=== PATIENT | female | born 1995 | race Hispanic/Latino ===

== ENCOUNTER 2019-07-06 17:12 | Emergency (ER) | payer OTHER ==
--- OUTSIDE RECORDS SUMMARY | 2019-07-06 17:16 | XMS REPORT ---
:1995 Author Organization [facility] Address [address] [place] [address] Dr. [place] [address] [place] [address] Care Team Providers Name Role Phone Unavailable Unavailable Unavailable Problems This patient has no known problems. Allergies, Adverse Reactions, Alerts This patient has no known allergies or adverse reactions. Medications This patient has no known medications.
--- OUTSIDE RECORDS SUMMARY | 2019-07-06 17:16 | XMS REPORT ---
:1993 Author Organization eClinicalWorks Care Team Providers Name Role Phone Live, Na Provider Role Unavailable Allergies No Known Allergies Problems Problem Type Condition Code Onset Dates Condition Status Problem Sleep disturbance G47.9 Active Problem Acanthosis nigricans L83 Active Problem Body mass index (BMI) of 40.0-44.9 Z68.41 Active in adult Problem Renal artery stenosis in 1 of 2 I70.1 Active vessels Problem Gastroesophageal reflux disease, K21.9 Active esophagitis presence not specified Problem Renal artery stenosis I70.1 Active Problem GERD without esophagitis K21.9 Active Problem Acquired hypothyroidism E03.9 Active Problem Other secondary hypertension I15.8 Active Problem Seasonal allergies J30.2 Active Medications No Known Medications Results No Known Results Summary Purpose eClinicalWorks Submission
--- OUTSIDE RECORDS SUMMARY | 2019-07-06 17:16 | XMS REPORT ---
:1993 Author Organization eClinicalWorks Care Team Providers Name Role Phone Live, Na Provider Role Unavailable Allergies, Adverse Reactions, Alerts Substance Reaction Event Type N.K.D.A. Info Not Available Non Drug Allergy Problems Problem Type Condition Code Onset Dates Condition Status Problem Body mass index (BMI) of 40.0-44.9 Z68.41 Active in adult Problem Acquired hypothyroidism E03.9 Active Problem Acanthosis nigricans L83 Active Problem Renal artery stenosis I70.1 Active Assessment Elevated alkaline phosphatase level R74.8 Active Problem Renal artery stenosis in 1 of 2 I70.1 Active vessels Assessment Body mass index (BMI) of 40.0-44.9 Z68.41 Active in adult Problem Pelvic pain R10.2 Active Problem Seasonal allergies J30.2 Active Problem GERD without esophagitis K21.9 Active Problem Gastroesophageal reflux disease, K21.9 Active esophagitis presence not specified Problem Other secondary hypertension I15.8 Active Assessment Hoarseness or changing voice R49.9 Active Assessment Oral contraception initial Z30.011 Active prescription Assessment Seasonal allergies J30.2 Active Assessment Gastroesophageal reflux disease, K21.9 Active esophagitis presence not specified Assessment Acquired hypothyroidism E03.9 Active Assessment Other secondary hypertension I15.8 Active Assessment Hair loss L65.9 Active Assessment Renal artery stenosis in 1 of 2 I70.1 Active vessels Problem Sleep disturbance G47.9 Active Medications Medication Code Code Instructions Start End Status Dosage System Date Date Chlorthalidone ND 22646472404 25 MG Orally Aug 05, Active 1 tablet Once a day 2017 in the morning with food Protonix ND 17417802498 40 MG Orally April 28, Active 1 tablet Once a day 2017 Taytulla ND 46116158818 1-20 MG-MCG(24) Oct 05, Active 1 capsule Orally Once a 2018 day Fluticasone ND 15641612483 50 MCG/ACT Active 1 spray in Propionate Nasally Once a each day nostril Levothyroxine ND 90166955264 75 MCG Orally Active 1 tablet Sodium Once a day on an empty stomach in the morning Results No Known Results Summary Purpose eClinicalWorks Submission
--- OUTSIDE RECORDS SUMMARY | 2019-07-06 17:16 | XMS REPORT ---
:1993 Author Organization eClinicalWorks Care Team Providers Name Role Phone Live, Na Provider Role Unavailable Allergies, Adverse Reactions, Alerts Substance Reaction Event Type N.K.D.A. Info Not Available Non Drug Allergy Problems Problem Type Condition Code Onset Dates Condition Status Problem Seasonal allergies J30.2 Active Problem Gastroesophageal reflux disease, K21.9 Active esophagitis presence not specified Problem Other secondary hypertension I15.8 Active Problem Hypokalemia E87.6 Active Assessment Hypokalemia E87.6 Active Problem Pelvic pain R10.2 Active Assessment Muscle cramps R25.2 Active Assessment Alkaline phosphatase elevation R74.8 Active Problem Hair loss L65.9 Active Problem Renal artery stenosis I70.1 Active Problem Renal artery stenosis in 1 of 2 I70.1 Active vessels Problem Irregular menses N92.6 Active Problem Well woman exam with routine Z01.419 Active gynecological exam Assessment Renal artery stenosis in 1 of 2 I70.1 Active vessels Assessment Pelvic pain R10.2 Active Assessment Other secondary hypertension I15.8 Active Assessment Acquired hypothyroidism E03.9 Active Problem Body mass index (BMI) of 40.0-44.9 Z68.41 Active in adult Problem Acanthosis nigricans L83 Active Problem Acquired hypothyroidism E03.9 Active Assessment Hair loss L65.9 Active Problem Sleep disturbance G47.9 Active Problem GERD without esophagitis K21.9 Active Medications Medication Code Code Instructions Start End Status Dosage System Date Date [facility] 56422844307 1-20 MG-MCG() Oct 05, Active 1 capsule Orally Once a 2018 day Levothyroxine ND 13618236177 75 MCG Orally Active 1 tablet Sodium Once a day on an empty stomach in the morning Pantoprazole ND 77040062930 20 MG Orally Active 1 tablet Sodium Once a day Fluticasone [facility] 84566038698 50 MCG/ACT Active 1 spray Propionate Nasally Once a in each day nostril Chlorthalidone [facility] 90601776897 25 MG Orally Active 1 tablet Once a day in the morning with food Protonix [facility] 98722532729 40 MG Orally April 28, Active 1 tablet Once a day 2017 Omeprazole [facility] [address]-11 40 MG Orally Active 1 capsule twice a day Results Name Result Date Reference Range Unit Abnormality Flag COMPREHENSIVE METABOLIC PANEL(CMP) ----ALBUMIN/GLOBULI 1.4 20190225 1.0-2.5 (calc) N N RATIO ----GLOBULIN 3.2 [id number] 1.9-3.7 g/dL N (calc) ----ALKALINE 112 [id number] 33-115 U/L N PHOSPHATASE ----BILIRUBIN, 0.5 [id number] 0.2-1.2 mg/dL N TOTAL ----CHLORIDE 99 [id number] 98-110 mmol/L N ----ALT 27 [id number] 6-29 U/L N ----POTASSIUM 3.6 [id number] 3.5-5.3 mmol/L N ----AST 24 [id number] 10-30 U/L N ----SODIUM 141 [id number] 135-146 mmol/L N ----BUN/CREATININE NOT APPLICABLE [id number] 6-22 (calc) RATIO ----eGFR 121 [id number] > OR=60 mL/min/1.[address] ----CALCIUM 10.2 [id number] 8.6-10.2 mg/dL N ----CARBON DIOXIDE 29 [id number] 20-32 mmol/L N ----ALBUMIN 4.6 [id number] 3.6-5.1 g/dL N ----PROTEIN, TOTAL 7.8 [id number] 6.1-8.1 g/dL N ----GLUCOSE 83 [id number] 65-99 mg/dL N ----UREA NITROGEN 11 [id number] 7-25 mg/dL N (BUN) ----CREATININE 0.79 [id number] 0.50-1.10 mg/dL N ----eGFR NON-AFR. 104 [id number] > OR=60 mL/min/1.[address] Summary Purpose eClinicalWorks Submission
--- OUTSIDE RECORDS SUMMARY | 2019-07-06 17:16 | XMS REPORT ---
:1993 Author Organization eClinicalWorks Care Team Providers Name Role Phone Calos, Sandrita Provider Role Unavailable Allergies, Adverse Reactions, Alerts Substance Reaction Event Type N.K.D.A. Info Not Available Non Drug Allergy Problems Problem Type Condition Code Onset Dates Condition Status Assessment Cold intolerance R68.89 Active Assessment Varicose veins of bilateral lower I83.893 Active extremities with other complications Problem Other secondary hypertension I15.8 Active Assessment Low vitamin D level R79.89 Active Problem Gastroesophageal reflux disease, K21.9 Active esophagitis presence not specified Assessment Other secondary hypertension I15.8 Active Problem Renal artery stenosis in 1 of 2 I70.1 Active vessels Problem Well woman exam with routine Z01.419 Active gynecological exam Problem Renal artery stenosis I70.1 Active Problem Varicose veins of bilateral lower I83.893 Active extremities with other complications Problem Lesion of skin of foot L98.9 Active Assessment Lesion of skin of foot L98.9 Active Assessment Renal artery stenosis in 1 of 2 I70.1 Active vessels Problem Dermatitis L30.9 Active Assessment Acquired hypothyroidism E03.9 Active Problem Pelvic pain R10.2 Active Problem Irregular menses N92.6 Active Problem Hair loss L65.9 Active Problem Hypokalemia E87.6 Active Problem Acanthosis nigricans L83 Active Problem Acquired hypothyroidism E03.9 Active Assessment Dermatitis L30.9 Active Problem GERD without esophagitis K21.9 Active Problem Seasonal allergies J30.2 Active Problem Sleep disturbance G47.9 Active Problem Body mass index (BMI) of 40.0-44.9 Z68.41 Active in adult Medications Medication Code Code Instructions Start End Status Dosage System Date Labetalol HCl [facility] 18546522099 100 MG Orally Active 1 tablet once a day Terbinafine HCl [facility] 48274788882 250 MG Orally March 04, Active 1 tablet Once a day 2018 Labetalol HCl [facility] 74239813688 100 MG Orally Active 1/2 tablet Twice a day Levothyroxine [facility] 23744290177 75 MCG Orally Active 1 tablet Sodium Once a day on an empty stomach in the morning Ergocalciferol [facility] 83596813931 [address]92 UNIT March 04, Active 1 capsule Orally once a 2019 week Fluticasone ND 79828782933 50 MCG/ACT Active 1 spray in Propionate Nasally Once a each day nostril Omeprazole ND 18274448911 40 MG Orally Active 1 capsule twice a day Griseofulvin ND 08749521670 500 MG Orally March 10, Jun 08, Active 2 tablets Microsize with food Once 2018 2018 a day Pantoprazole [facility] 00779778236 20 MG Orally Active 1 tablet Sodium Once a day Taytulla [facility] 30312006851 1-20 MG-MCG(24) Oct 05, Active 1 capsule Orally Once a 2018 day Protonix ND 86141732993 40 MG Orally April 28, Active 1 tablet Once a day 2018 Results No Known Results Summary Purpose eClinicalWorks Submission
--- OUTSIDE RECORDS SUMMARY | 2019-07-06 17:16 | XMS REPORT | Summary of Care ---
:1993 Author Organization [facility] Address [address] [place] [address] Care Team Providers Name Role Phone Sandrita Live Primary Care Provider Reason for Referral (Routine) Status Reason Specialty Diagnoses / Referred By Referred To Procedures Contact Contact New Request Maternal Diagnoses 11 weeks gestation of High-risk in first trimester Eun Laureano Medicine Procedures CONSULT MATERNAL MEDICINE ULTRASOUND Preferred Location: [facility] RO [address] [place] [address] [address] [place] [address] Reason for Visit Reason Comments ROUTINE VISIT Encounter Details Date Type Department Care Team Description 05/31/2019 Routine [facility] Women's Eun Laureano MD High-risk in first trimester (Primary Dx); Visit Healthcare- [address] [place] [address] 11 weeks gestation of ; Javi DAVIS Hypothyroidism, unspecified type; [address] [place] [address], [facility] [address] Pre-existing essential hypertension during , antepartum; [address] [place], [place] Obesity, Class III, BMI 40-49.9 (morbid obesity); [place] [address] Sickle cell trait [id number] Allergies No Known Allergiesdocumented as of this encounter (statuses as of 05/31/2019) Medications Medication Sig Dispensed Refills Start Date End Date Status ergocalciferol, Take 50,000 0 Active vitamin d2, 50,000 Units by unit capsule mouth weekly. labetalol 100 mg Take 100 mg 0 Active tablet by mouth daily. levothyroxine 100 Take 1 tablet 30 tablet 1 05/12/2019 Active mcg tablet by mouth every morning. PNV 19/iron Take by 0 Active ps,heme/folic/dha mouth. ( MV & MIN ORAL) ranitidine HCl Take by 0 Active (ZANTAC ORAL) mouth. omeprazole 40 mg Take 40 mg by 0 05/31/2019 Discontinued capsule mouth daily. documented as of this encounter (statuses as of 05/31/2019) Active Problems Problem Noted Date Sickle cell trait 05/31/2019 Pre-existing essential hypertension during , antepartum 05/31/2019 Hypothyroidism, unspecified type 05/31/2019 Morbid obesity with body mass index of 40.0-49.9 05/10/2019 Estimated Date of Delivery Comments Yes 01/02/2020 Based on Ultrasound documented as of this encounter (statuses as of 05/31/2019) Immunizations Name Administration Dates Next Due Influenza Virus Vaccine 10/30/2006 documented as of this encounter Social History Tobacco Use Types Packs/Day Years Used Date Never Smoker Smokeless Tobacco: Never Used Alcohol Use Drinks/Week oz/Week Comments Yes Alcohol Habits Answer Date Recorded How often do you have a drink containing alcohol? Monthly or less 05/10/2019 How many drinks containing alcohol do you have on a Not asked typical day when you are drinking? How often do you have six or more drinks on one Not asked occasion? Estimated Date of Delivery Comments Yes 01/02/2020 Based on Ultrasound Sex Assigned at Date Recorded Not on file Job Start Date Occupation Industry Not on file Not on file Not on file Travel History Travel Start Travel End No recent travel history available. documented as of this encounter Last Filed Vital Signs Vital Sign Reading Time Taken Comments Blood Pressure 129/86 05/31/2019 9:07 AM CDT Pulse 76 05/31/2019 9:07 AM CDT Temperature 36.7 C (98.1 F) 05/31/2019 9:07 AM CDT Respiratory Rate 18 05/31/2019 9:07 AM CDT Oxygen Saturation - - Inhaled Oxygen Concentration - - Weight 110.1 kg (242 lb 12.8 oz) 05/31/2019 9:07 AM CDT Height 160 cm (5' 3") 05/31/2019 9:07 AM CDT Body Mass Index 43.01 05/31/2019 9:07 AM CDT documented in this encounter Progress Notes Eun Laureano MD - 05/31/2019 8:30 AM CDT Chief complaint: Chief Complaint Patient presents with ROUTINE VISIT HPI Denies vaginal bleeding or cramping. Histories OB History Para Term AB Living 1 SAB TAB Ectopic Multiple Live Births # Outcome Date GA Lbr Tanner/2nd Weight Sex Delivery Anes PTL Lv 1 Current Past Medical History: Diagnosis Date Hypertension Hypothyroidism, unspecified type 05/31/2019 Kidney disease Filtration rate is not high Sickle cell anemia trait Sickle cell trait Thyroid disease Family History Problem Relation Age of Onset Diabetes Father Arthritis NoFHx Asthma NoFHx defects NoFHx Breast Cancer NoFHx Colon Cancer NoFHx Uterine Cancer NoFHx Ovarian Cancer NoFHx Depression NoFHx Genetic NoFHx Heart NoFHx High cholesterol NoFHx Mental retardation NoFHx Hypertension NoFHx Neurological NoFHx Osteoporosis NoFHx Psychiatry NoFHx Family Status Relation Name Status Mo Alive Fa Alive NoFHx (Not Specified) Past Surgical History: Procedure Laterality Date ANKLE ARTHROPLASTY right ankle CHOLECYSTECTOMY Social History Socioeconomic History Marital status: Single Spouse name: Not on file Number of children: Not on file Years of education: Not on file Highest education level: Not on file Occupational History Not on file Social Needs Financial resource strain: Not on file Food insecurity: Worry: Not on file Inability: Not on file Transportation needs: Medical: Not on file Non-medical: Not on file Tobacco Use Smoking status: Never Smoker Smokeless tobacco: Never Used Substance and Sexual Activity Alcohol use: Yes Frequency: Monthly or less Drug use: Never Sexual activity: Yes Partners: Male control/protection: None Lifestyle Physical activity: Days per week: Not on file Minutes per session: Not on file Stress: Not on file Relationships Social connections: Talks on phone: Not on file Gets together: Not on file Attends synagogue service: Not on file Active member of club or organization: Not on file Attends meetings of clubs or organizations: Not on file Relationship status: Not on file Intimate partner violence: Fear of current or ex partner: Not on file Emotionally abused: Not on file Physically abused: Not on file Forced sexual activity: Not on file Other Topics Concern Not on file Social History Narrative Denies domestic or physical violence within the home 4 Cats in Home has had for 3 years Social History Substance and Sexual Activity Sexual Activity Yes Partners: Male control/protection: None Labs No new labs Radiology No new radiology. Allergies Olga has No Known Allergies. Medications Olga has a current medication list which includes the following prescription( s): pnv 19/iron ps,heme/folic/dha, ranitidine hcl, levothyroxine, ergocalciferol (vitamin d2), and labetalol. Review of Systems Constitutional: Negative for chills, fatigue and fever. HENT: Negative for congestion, rhinorrhea, sneezing and sore throat. Eyes: Negative for photophobia and visual disturbance. Respiratory: Negative for cough, chest tightness, shortness of breath and wheezing. Cardiovascular: Negative for chest pain and palpitations. Gastrointestinal: Negative for abdominal distention, abdominal pain, constipation, diarrhea, nausea and vomiting. Genitourinary: Negative for dysuria, urgency, frequency, vaginal bleeding and vaginal discharge. Skin: Negative for rash. Neurological: Negative for syncope and headaches. Hematological: Does not bruise/bleed easily. BP 129/86 (BP Location: Right arm, Patient Position: Sitting, BP CUFF SIZE: Adult Large) | Pulse 76 | Temp 36.7 C (98.1 F) (Oral) | Resp 18 | Ht 5' 3 " (1.6 m) | Wt 242 lb 12.8 oz (110.1 kg) |LMP 03/10/2019 (LMP Unknown) | BMI 43.01 kg/m Pregravid BMI: 41.6 Physical Exam Vitals reviewed. Constitutional: She is oriented to person, place, and time. Her body habitus is obese. Cardiovascular: Regular rate and rhythm. Pulmonary/Chest: Normal inspiratory effort. Abdominal: Abdomen is soft. No tenderness present. No hernia palpated or inspected. Neuro/Psychiatric: She has a normal mood and affect. She is oriented to person, place, and time. Skin: Skin normal. No rash present. Assessment/Plan See OB Summary Return to clinic in 4 weeks. Reviewed patient instructions and provided printed copy. Activity restrictions: As tolerated at 9w1d This visit did not involve counseling and coordination that comprised more than 50% of the visit time. Eun Laureano MD 05/31/2019 2:08 PM documented in this encounter Plan of Treatment Date Type Specialty Care Team Description 06/01/2019 Office Visit Cardiology Raffaele Green MD [address] [place], [place] [id number] 06/18/2019 Nurse Visit Obstetrics & Nurse, [facility] 06/28/2019 Routine Obstetrics & Laureano, Eun Chandler MD Visit Gynecology [address] [place] [address] [address] [place] [address] Name Type Priority Associated Diagnoses Order Schedule THYROID STIMULATING LAB Routine Hypothyroidism, Expected: 06/12/2019, HORMONE unspecified type Expires: 08/31/2019 COMP. METABOLIC PANEL LAB Routine High-risk in 1 Occurrences starting ([address]) first trimester 05/31/2019 until Pre-existing essential 08/31/2019 hypertension during , antepartum Health Maintenance Due Date Last Done Comments VARICELLA VACCINES (1 of 2 - 13+ 2006 2-dose series) HPV VACCINES (1 - Female 3-dose 2008 series) DTaP,Tdap,and Td Vaccines (1 - 2012 Tdap) PAP SMEAR 2014 INFLUENZA VACCINE 06/20/2019 10/30/2006 PNEUMOCOCCAL 0-64 YEARS COMBINED Aged Out No longer eligible based on SERIES patient's age to complete this topic documented as of this encounter Procedures Procedure Name Priority Date/Time Associated Diagnosis Comments POCT URINALYSIS W/O Routine 05/31/2019 11 weeks gestation of Results for this SPECIFIC GRAVITY procedure are in the results section. documented in this encounter Results POCT URINALYSIS W/O SPECIFIC GRAVITY (05/31/2019) POCT PH U n/a 5 - 8 mg/dl POCT U LEUK EST n/a Negative - Negative POCT U NIT n/a Negative - Negative POCT U PROT neg Negative - Negative POCT U GLU neg Negative - Negative POCT U KETONE n/a Negative - Negative POCT U BLD n/a Negative - Negative Specimen Urine - URINE, CLEAN CATCH documented in this encounter Visit Diagnoses Diagnosis High-risk in first trimester - Primary 11 weeks gestation of state, incidental Hypothyroidism, unspecified type Pre-existing essential hypertension during , antepartum Obesity, Class III, BMI 40-49.9 (morbid obesity) Morbid obesity Sickle cell trait Sickle-cell trait documented in this encounter (Home) [place] [address] documented as of this encounter
--- OUTSIDE RECORDS SUMMARY | 2019-07-06 17:16 | XMS REPORT ---
:1993 Author Organization eClinicalWorks Care Team Providers Name Role Phone Fernando Ford Provider Role Unavailable Allergies, Adverse Reactions, Alerts Substance Reaction Event Type N.K.D.A. Info Not Available Non Drug Allergy Problems Problem Type Condition Code Onset Dates Condition Status Problem Acquired hypothyroidism E03.9 Active Problem Seasonal allergies J30.2 Active Problem GERD without esophagitis K21.9 Active Problem Irregular menses N92.6 Active Problem Well woman exam with routine Z01.419 Active gynecological exam Problem Pelvic pain R10.2 Active Problem Gastroesophageal reflux disease, K21.9 Active esophagitis presence not specified Problem Other secondary hypertension I15.8 Active Problem Renal artery stenosis I70.1 Active Problem Renal artery stenosis in 1 of 2 I70.1 Active vessels Assessment Irregular menses N92.6 Active Problem Sleep disturbance G47.9 Active Assessment Body mass index (BMI) of 40.0-44.9 Z68.41 Active in adult Problem Body mass index (BMI) of 40.0-44.9 Z68.41 Active in adult Assessment Well woman exam with routine Z01.419 Active gynecological exam Problem Acanthosis nigricans L83 Active Medications Medication Code Code Instructions Start End Status Dosage System Date Date Pantoprazole ND 12734182415 20 MG Orally Active 1 tablet Sodium Once a day Protonix ND 89524057003 40 MG Orally April 28, Active 1 tablet Once a day 2017 Fluticasone ND 47950685545 50 MCG/ACT Active 1 spray in Propionate Nasally Once a each day nostril Levothyroxine ND 68392857094 75 MCG Orally Active 1 tablet Sodium Once a day on an empty stomach in the morning Taytulla ND 75607138579 1-20 MG-MCG(Oct 05, Active 1 capsule Orally Once a 2018 day Chlorthalidone ND 98675924270 25 MG Orally Active 1 tablet Once a day in the morning with food Results No Known Results Summary Purpose eClinicalWorks Submission
--- OUTSIDE RECORDS SUMMARY | 2019-07-06 17:16 | XMS REPORT ---
[...] 1 of 2 I70.1 Active vessels Problem Pelvic pain R10.2 Active Problem Seasonal allergies J30.2 Active Problem GERD without esophagitis K21.9 Active Problem Gastroesophageal reflux disease, K21.9 Active esophagitis presence not specified Problem Other secondary hypertension I15.8 Active Assessment Hair loss L65.9 Active Assessment Renal artery stenosis in 1 of 2 I70.1 Active vessels Assessment Pelvic pain R10.2 Active Assessment Other secondary hypertension I15.8 Active Assessment Acquired hypothyroidism E03.9 Active Problem Sleep disturbance G47.9 Active Medications Medication Code Code Instructions Start End Status Dosage System Date Date Levothyroxine [facility] 59182860380 75 MCG Orally Active 1 tablet Sodium Once a day on an empty stomach in the morning Taytulla [facility] 99186023106 1-20 MG-MCG(Oct 05, Active 1 capsule Orally Once a 2017 day Protonix ND 57981116492 40 MG Orally April 28, Active 1 tablet Once a day 2017 Fluticasone ND 58587130779 50 MCG/ACT Active 1 spray in Propionate Nasally Once a each day nostril Chlorthalidone ND 56512270627 25 MG Orally Active 1 tablet Once a day in the morning with food Results No Known Results Summary Purpose eClinicalWorks Submission
--- OUTSIDE RECORDS SUMMARY | 2019-07-06 17:16 | XMS REPORT | Summary of Care ---
:[address] [facility] Address [address] [place] [address] Care Team Providers Name Role Phone Sandrita Live Primary Care Provider Reason for Visit Reason Comments Notification Encounter Details Date Type Department Care Team Description 05/24/2019 Telephone [facility] Women's LaureanoEun MD Notification Healthcare- [address] [facility], [address] [place] [address] [place] [address] Allergies No Known Allergiesdocumented as of this encounter (statuses as of 05/24/2019) Medications Medication Sig Dispensed Refills Start Date End Date Status omeprazole 40 mg capsule Take 40 mg by 0 Active mouth daily. ergocalciferol, vitamin Take 50,000 0 Active d2, 50,000 unit capsule Units by mouth weekly. labetalol 100 mg tablet Take 100 mg by 0 Active mouth every 12 (twelve) hours. levothyroxine 100 mcg Take 1 tablet by 30 tablet 1 05/12/2019 Active tablet mouth every morning. documented as of this encounter (statuses as of 05/24/2019) Active Problems Problem Noted Date Morbid obesity with body mass index of 40.0-49.9 05/10/2019 Comments Yes documented as of this encounter (statuses as of 05/24/2019) Immunizations Name Administration Dates Next Due Influenza [...] more drinks on one Not asked occasion? Comments Yes Sex Assigned at Date Recorded Not on file Job Start Date Occupation Industry Not on file Not on file Not on file Travel History Travel Start Travel End No recent travel history available. documented as of this encounter Last Filed Vital Signs Not on filedocumented in this encounter Plan of Treatment Date Type Specialty Care Team Description 05/27/2019 Appointment Radiology Eun Laureano MD [address] [place] [address] [address] Re[address] [place], [place] [id number] 05/31/2019 Routine Visit Obstetrics & Eun Laureano MD Gynecology [address] [place] [address] [address] Reeder [address] [place], [place] [phone] 06/01/2019 Office Visit Cardiology Raffaele Green MD [address] [place] [address] [address] [place] [address] Health Maintenance Due Date Last Done Comments VARICELLA VACCINES (1 of 2 - 13+ 2006 2-dose series) HPV VACCINES (1 - Female 3-dose 2008 series) DTaP,Tdap,and Td Vaccines (1 - 2012 Tdap) PAP SMEAR 2014 INFLUENZA VACCINE 06/20/2019 10/30/2006 PNEUMOCOCCAL 0-64 YEARS COMBINED Aged Out No longer eligible based on SERIES patient's age to complete this topic documented as of this encounter Results Not on filedocumented in this encounter Insurance Payer Benefit Plan / Group Subscriber ID Effective Dates Phone Address Type LIDA HILTON II [id number] 2018-Present HMO/PPO/POS documented as of this encounter
--- OUTSIDE RECORDS SUMMARY | 2019-07-06 17:16 | XMS REPORT ---
:1993 Author Organization [employer] Care Team Providers Name Role Phone Les Mcrae Provider Role Unavailable Allergies No Known Allergies Problems Problem Type Condition Code Onset Dates Condition Status Assessment Elevated BP without diagnosis of R03.0 Active hypertension Assessment Acquired hypothyroidism E03.9 Active Assessment Seasonal allergies J30.2 Active Problem GERD without esophagitis K21.9 Active Problem Body mass index (BMI) of 40.0-44.9 Z68.41 Active in adult Problem Seasonal allergies J30.2 Active Problem Acanthosis nigricans L83 Active Problem Sleep disturbance G47.9 Active Problem Acquired hypothyroidism E03.9 Active Medications Medication Code Code Instructions Start End Status Dosage System Date Date Viberzi [facility] 65011281482 75 MG Orally Active 1 tablet Twice a day with food Protonix [facility] 74485363880 40 MG Orally April 28, Active 1 tablet Once a day 2017 Diclof[place]ac [place] 08809412598 50 MG Orally Active 1 tablet Potassium Twice a day Levothyroxine [facility] 68950361863 75 MCG Orally Active 1 tablet Sodium Once a day on an empty stomach in the morning Fluticasone [facility] 14613646694 50 MCG/ACT Jun 25, Active 1 spray in Propionate Nasally Once a 2018 each day nostril GNP Loratadine-D [facility] 01688857170 5-120 MG Orally Jun 25, Aug 24, Active 1 tablet 12HR every 12 hrs 2017 2017 as needed Colace [facility] 61708877753 100 MG Orally Active 1 capsule Twice a day as needed Results No Known Results Summary Purpose eClinicalWorks Submission
--- OUTSIDE RECORDS SUMMARY | 2019-07-06 17:17 | XMS REPORT | Summary of Care ---
:1993 Author Organization [facility] Address [address] [place] [address] Care Team Providers Name Role Phone Sandrita Live Primary Care Provider Reason for Referral (Routine) Status Reason Specialty Diagnoses / Referred By Referred To Procedures Contact Contact New Request Cardiology Diagnoses Essential hypertension Raffaele Green MD Procedures ECHO ROUTINE W/DOPPLER COLOR Preferred Location: [address] [place] [address] Reason for Visit Reason Comments New Patient Establish Care//HTN Ekg Done today in office (Routine) Status Reason Specialty Diagnoses / Referred By Referred To Procedures Contact Contact New Request Cardiology Diagnoses Pre-existing essential hypertension during , antepartum Eun Laureano MD Procedures CONSULT/REFERRAL CARDIOLOGY [address] [place] [address] [address] [place], [place] [address] Encounter Details Date Type Department Care Team Description 06/01/2019 Office Visit [facility] Raffaele Green MD Essential hypertension (Primary Dx); Cardiology- [address] Morbid obesity with body mass index of 40.0-49.[address] [place] [address], [address] [place] [phone] Allergies No Known Allergiesdocumented as of this encounter (statuses as of 06/01/2019) Medications Medication Sig Dispensed Refills Start Date End Date Status ergocalciferol, vitamin Take 50,000 0 Active d2, 50,000 unit capsule Units by mouth weekly. labetalol 100 mg tablet Take 100 mg by 0 Active mouth daily. levothyroxine 100 mcg Take 1 tablet by 30 tablet 1 05/12/2019 Active tablet mouth every morning. PNV 19/iron Take by mouth. 0 Active ps,heme/folic/dha ( MV & MIN ORAL) ranitidine HCl (ZANTAC Take by mouth. 0 Active ORAL) documented as of this encounter (statuses as of 06/01/2019) Active Problems Problem Noted Date Sickle cell trait 05/31/2019 Pre-existing essential hypertension during , antepartum 05/31/2019 Hypothyroidism, unspecified type 05/31/2019 Morbid obesity with body mass index of 40.0-49.9 05/10/2019 Estimated Date of Delivery Comments Yes 01/02/2020 Based on Ultrasound documented as of this encounter (statuses as of 06/01/2019) Immunizations Name Administration Dates Next Due Influenza [...] Sign Reading Time Taken Comments Blood Pressure 118/80 06/01/2019 3:45 PM CDT Pulse 80 06/01/2019 3:45 PM CDT Temperature - - Respiratory Rate 20 06/01/2019 3:45 PM CDT Oxygen Saturation 100% 06/01/2019 3:45 PM CDT Inhaled Oxygen Concentration - - Weight 110.9 kg (244 lb 6.4 oz) 06/01/2019 3:45 PM CDT Height 160 cm (5' 3") 06/01/2019 3:45 PM CDT Body Mass Index 43.29 06/01/2019 3:45 PM CDT documented in this encounter Progress Notes Raffaele Green MD - 06/01/2019 3:40 PM CDT CARDIOLOGY CLINIC NOTE 06/01/2019 Reason for Referral/Presenting Complaint: HTN PCP: Sandrita Live History of Present Illness: Olga Harris is a 24 years old female with history of morbid obesity and HTN. She was diagnosed HTN a year ago with BP 180/90s. Did not have any symptoms. Now taking labetalol with BP well controlled. Now she is . No chest pain or SOB. Mild snoring. Some anxiety with palpitations. Sleeps on2 pillows. Review of Systems: General: (-) fever, (-) chills, (-) weight change, (-) dizziness, (-) fatigue Skin: (-) rash HEENT: (-) headache, (-) change in vision Neck: (-) difficulty swallowing Heme: negative Resp: (-) cough, (-) dyspnea on exertion Cardio: (-) chest pain, (-) palpitations, (-) syncope GI: (-) vomiting, (-) diarrhea : negative Endo: (-) diabetes, (-) thyroid disease Neuro: (-) numbness, (-) tingling, (-) weakness Back: (-) pain YOAN: (-) muscle pain, (-) claudication Psych: (-) anxiety, (-) depression Past Medical History: Past Medical History: Diagnosis Date Hypertension Hypothyroidism, unspecified type 05/31/2019 Kidney disease Filtration rate is not high Sickle cell anemia trait Sickle cell trait Thyroid disease Current Medications: Current Outpatient Medications Medication Sig Dispense Refill PNV 19/iron ps,heme/folic/dha ( MV & MIN ORAL) Take by mouth. ranitidine HCl (ZANTAC ORAL) Take by mouth. levothyroxine 100 mcg tablet Take 1 tablet by mouth every morning. 30 tablet 1 labetalol 100 mg tablet Take 100 mg by mouth daily. ergocalciferol, vitamin d2, 50,000 unit capsule Take 50,000 Units by mouth weekly. No current facility-administered medications for this visit. Social History: Social History Socioeconomic History Marital status: Single [...] file Gets together: Not on file Attends rastafarian service: Not on file Active member of [...] in Home has had for 3 years Family History Family History Problem Relation Age of Onset Diabetes Father Arthritis NoFHx Asthma NoFHx defects NoFHx Breast Cancer NoFHx Colon Cancer NoFHx Uterine Cancer NoFHx Ovarian Cancer NoFHx Depression NoFHx Genetic NoFHx Heart NoFHx High cholesterol NoFHx Mental retardation NoFHx Hypertension NoFHx Neurological NoFHx Osteoporosis NoFHx Psychiatry NoFHx Physical Examination: BP 118/80 (BP Location: Left arm, Patient Position: Sitting, BP CUFF SIZE: Adult Large) | Pulse 80| Resp 20 | Ht 5' 3" (1.6 m) | Wt 244 lb 6.4 oz ( 110.9 kg) | LMP 03/10/2019 (LMP Unknown) | [id number]% | BMI 43.29 kg/m Constitutional: alert and oriented x 3 (person, place and date/time); no apparent distress, obese ENT: normocephalic atraumatic, supple, no lymphadenopathy, no bruits, no JVD Lungs: clear to auscultation bilaterally Cardiovascular: S1, S2 normal, regular; no murmurs, rubs or gallops GI: soft; non-tender; non-distended; normoactive bowel sounds : not examined Musculoskeletal: Extremities: no clubbing, cyanosis, or edema Skin: no rashes Neuro: no focal deficits Cardiovascular testing: EKG: Normal sinus rhythm. Normal EKG. Assessment/Plan: ICD-10-CM ICD-9-CM 1. Essential hypertension I10 401.9 2. Morbid obesity with body mass index of 40.0-49.9 E66.01 278.01 Her BP is well controlled with labetalol. Advised to lose weight. Low salt diet. Will get ECHO to rule out aortic coarctation and other structural heart disease. Patient was counseled for lifestyle modifications including: diet, exercise and weight loss Thank you for allowing us to participate in the care of your patient. Please feel free to contact usfor any questions or if we can be of further assistance. Raffaele Green MD, FAC, KISHOR Screw Driver Operator, Division of Cardiology [facility] ; Pager documented in this encounter Plan of Treatment Date Type Specialty Care Team Description 06/09/2019 Laboratory Only Shape Carver, Adc Cardio Fac 1, Adc Cardio Fac Room 06/18/2019 Nurse Visit Obstetrics & Nurse, [facility] Women's Gynecology Health 06/28/2019 Routine Visit Obstetrics & Laureano, Eun Chandler MD Gynecology [address] [place] [address] [place] [address] [phone] Name Type Priority Associated Diagnoses Order Schedule EKG-12 LEAD ROUTINE HEART STATION Routine Essential hypertension Ordered: 06/01/2019 Health Maintenance Due Date Last Done Comments PNEUMOCOCCAL 0-64 YEARS COMBINED SERIES (1 of 3 - 1999 PCV13) VARICELLA VACCINES (1 of 2 - 13+ 2-dose series) 2006 HPV VACCINES (1 - Female 3-dose series) 2008 DTaP,Tdap,and Td Vaccines (1 - Tdap) 2012 PAP SMEAR 2014 INFLUENZA VACCINE 06/20/2019 10/30/2006 documented as of this encounter Results Not on filedocumented in this encounter Visit Diagnoses Diagnosis Essential hypertension - Primary Unspecified essential hypertension Morbid obesity with body mass index of 40.0-49.9 documented in this encounter documented as of this encounter
--- OUTSIDE RECORDS SUMMARY | 2019-07-06 17:17 | XMS REPORT | Summary of Care ---
:1993 Author Organization [facility] Address [address] [place] [address] Care Team Providers Name Role Phone Sandrita Live Primary Care Provider Reason for Visit Reason Comments LAB Encounter Details Date Type Department Care Team Description 06/18/2019 Case Management [facility] Women's LaureanoEun MD LAB Healthcare- [place] [address] [address] [place] [phone] [place] [phone] Allergies No Known Allergiesdocumented as of this encounter (statuses as of 06/18/2019) Medications Medication Sig Dispensed Refills Start Date [...] as of this encounter (statuses as of 06/18/2019) Active Problems Problem Noted Date Sickle cell trait 05/31/2019 Pre-existing essential hypertension during , antepartum 05/31/2019 Hypothyroidism, unspecified type 05/31/2019 Morbid obesity with body mass index of 40.0-49.9 05/10/2019 Estimated Date of Delivery Comments Yes 01/02/2020 Based on Ultrasound documented as of this encounter (statuses as of 06/18/2019) Immunizations Name Administration Dates Next Due Influenza [...] Treatment Date Type Specialty Care Team Description 06/28/2019 Routine Obstetrics & Laureano, Eun Chandler MD Visit Gynecology [address] [place] [address] DR. [place]arcon [place], [place] [address] Health Maintenance Due Date Last Done Comments VARICELLA VACCINES (1 of 2 - 13+ 2006 2-dose series) HPV VACCINES (1 - Female 3-dose 2008 series) DTaP,Tdap,and Td Vaccines (1 - 2012 Tdap) PAP SMEAR 2014 INFLUENZA VACCINE (#1) 2019 10/30/2006 PNEUMOCOCCAL 0-64 YEARS COMBINED Aged Out No longer eligible based on SERIES patient's age to complete this topic documented as of this encounter Results Not on filedocumented in this encounter Insurance Payer Benefit Plan / Group Subscriber ID Effective Dates Phone Address Type LIDA HILTON II [id number] 2018-Present HMO/PPO/POS documented as of this encounter
--- OUTSIDE RECORDS SUMMARY | 2019-07-06 17:17 | XMS REPORT | Summary of Care ---
:1993 Author Organization [facility] Address [address] [place] [address] Care Team Providers Name Role Phone Sandrita Live Primary Care Provider Reason for Visit Reason Comments Referral/consult Encounter Details Date Type Department Care Team Description 06/09/2019 Telephone [facility] Women's LaureanoEun MD Referral/consult Healthcare- [address] [facility], [address] [place] [address] [place] [address] Allergies No Known Allergiesdocumented as of this encounter (statuses as of 06/11/2019) Medications Medication Sig Dispensed Refills Start Date [...] as of this encounter (statuses as of 06/11/2019) Active Problems Problem Noted Date Sickle cell trait 05/31/2019 Pre-existing essential hypertension during , antepartum 05/31/2019 Hypothyroidism, unspecified type 05/31/2019 Morbid obesity with body mass index of 40.0-49.9 05/10/2019 Estimated Date of Delivery Comments Yes 01/02/2020 Based on Ultrasound documented as of this encounter (statuses as of 06/11/2019) Immunizations Name Administration Dates Next Due Influenza [...] & Laureano, Eun Chandler MD Visit Gynecology [address] [place] [address] [place] [address] [phone] Health Maintenance Due Date Last Done Comments [...] Dates Phone Address Type LIDA HILTON II [id number] 2018-Present HMO/PPO/POS documented as of this encounter
--- OUTSIDE RECORDS SUMMARY | 2019-07-06 17:17 | XMS REPORT | Summary of Care ---
:1993 Author Organization [facility] Address [address] [place] [address] Care Team Providers Name Role Phone Sandrita Live Primary Care Provider Reason for Referral (Routine) Status Reason Specialty Diagnoses / Referred By Referred To Procedures Contact Contact Closed Maternal Diagnoses 11 weeks gestation of High-risk in first trimester Eun Laureano MD Medicine Procedures CONSULT MATERNAL MEDICINE ULTRASOUND Preferred Location: [address] [place] [address] Reason for Visit Reason Comments ROUTINE VISIT Encounter Details Date Type Department Care Team Description 05/31/2019 Routine [facility] Women's Eun Laureano MD High-risk in first trimester (Primary Dx); Visit Healthcare- [address] [place] [address] 11 weeks gestation of ; [place] Hypothyroidism, unspecified type; [address] [place] [address], [facility] [address] Pre-existing essential hypertension during , antepartum; [address] [place], [place] Obesity, Class III, BMI 40-49.9 (morbid obesity); [place] [address] Sickle cell trait [phone] Allergies No Known Allergiesdocumented as of this encounter (statuses as of 06/10/2019) Medications Medication Sig Dispensed Refills Start Date [...] as of this encounter (statuses as of 06/10/2019) Active Problems Problem Noted Date Sickle cell trait 05/31/2019 Pre-existing essential hypertension during , antepartum 05/31/2019 Hypothyroidism, unspecified type 05/31/2019 Morbid obesity with body mass index of 40.0-49.9 05/10/2019 Estimated Date of Delivery Comments Yes 01/02/2020 Based on Ultrasound documented as of this encounter (statuses as of 06/10/2019) Immunizations Name Administration Dates Next Due Influenza [...] file Gets together: Not on file Attends hinduism service: Not on file Active member of [...] & Laureano, Eun Chandler MD Visit Gynecology [address] [place] [address] [place] [address] [phone] Name Type Priority Associated Diagnoses Order Schedule THYROID STIMULATING LAB Routine Hypothyroidism, Expected: 06/12/2019, HORMONE unspecified type Expires: 08/31/2019 COMP. METABOLIC PANEL LAB Routine High-risk in 1 Occurrences starting (64189) first trimester 05/31/2019 until Pre-existing essential 08/31/2019 [...] trait Sickle-cell trait documented in this encounter documented as of this encounter
--- OUTSIDE RECORDS SUMMARY | 2019-07-06 17:17 | XMS REPORT | Summary of Care ---
:1993 Author Organization [facility] - [facility] Address [address] [place] [address] Care Team Providers Name Role Phone Sandrita Live Primary Care Provider Reason for Referral (Routine) Status Reason Specialty Diagnoses / Referred By Referred To Procedures Contact Contact New Request Cardiology Diagnoses Essential hypertension Raffaele Green MD Procedures ECHO ROUTINE W/DOPPLER COLOR Preferred Location: [address] [place] [address] Reason for Visit Reason Comments New Patient Establish Care//HTN Ekg Done today in office (Routine) Status Reason Specialty Diagnoses / Referred By Referred To Procedures Contact Contact New Request Cardiology Diagnoses Pre-existing essential hypertension during , antepartum Eun Laureano MD Procedures CONSULT/REFERRAL CARDIOLOGY [address] [place] [address] [address] [place], [place] [address] Encounter Details Date Type Department Care Team Description 06/01/2019 Office Visit [facility] Raffaele Green MD Essential hypertension (Primary Dx); Cardiology- [address] Morbid obesity with body mass index of 40.0-49.[address] [place] [address], [address] [place] [phone] Allergies No Known Allergiesdocumented as of this [...] file Gets together: Not on file Attends jainism service: Not on file Active member of [...] kg) | LMP 03/10/2019 (LMP Unknown) | [id number]% | BMI 43.29 kg/m Constitutional: alert and [...] further assistance. Raffaele Green MD, FAC, KISHOR Crowning Hammer Operator, Division of Cardiology [facility] ; Pager documented in this encounter Plan of Treatment Date Type Specialty Care Team Description 06/09/2019 Laboratory Only Cutter Machine Tender, Adc Cardio Fac 1, Adc Cardio Fac Room 06/18/2019 Nurse Visit Obstetrics & Nurse, [facility] Women's Gynecology Health 06/28/2019 Routine Visit Obstetrics & Laureano, Eun Chandler MD Gynecology [address] [place] [address] [place] [address] [phone] Name Type Priority Associated Diagnoses Order Schedule [...]
--- OUTSIDE RECORDS SUMMARY | 2019-07-06 17:17 | XMS REPORT | Summary of Care ---
:1993 Author Organization [facility] - Health Address [address] [place] [address] Care Team Providers Name Role Phone Sandrita Live Primary Care Provider Encounter Details Date Type Department Care Team Description 06/10/2019 Orders Only [facility] Doctor Unassigned, No [address] [facility] Name [address] [address] Allergies No Known Allergiesdocumented as of this encounter (statuses as of 06/27/2019) Medications Medication Sig Dispensed Refills Start Date [...] as of this encounter (statuses as of 06/27/2019) Active Problems Problem Noted Date Sickle cell trait 05/31/2019 Pre-existing essential hypertension during , antepartum 05/31/2019 Hypothyroidism, unspecified type 05/31/2019 Morbid obesity with body mass index of 40.0-49.9 05/10/2019 Estimated Date of Delivery Comments Yes 01/02/2020 Based on Ultrasound documented as of this encounter (statuses as of 06/27/2019) Immunizations Name Administration Dates Next Due Influenza [...] & Laureano, Eun Chandler MD Visit Gynecology [address] [place] [address] [place] [address] Health Maintenance Due Date Last [...] Procedure Name Priority Date/Time Associated Diagnosis Comments SCANNED LAB RESULTS Routine 06/10/2019 12:01 AM CDT documented in this encounter Results SCANNED LAB RESULTS (06/10/2019 12:01 AM CDT) Specimen Performing Organization Address City/State/Zipcode Phone Number HIM documented in this encounter Insurance Payer Benefit Plan / Group Subscriber ID Effective Dates Phone Address Type LIDA HILTON II [id number] 2018-Present HMO/PPO/POS documented as of this encounter
--- OUTSIDE RECORDS SUMMARY | 2019-07-06 17:17 | XMS REPORT | Summary of Care ---
:1993 Author Organization [facility] Address [address] [place] [address] Care Team Providers Name Role Phone Sandrita Live Primary Care Provider Reason for Visit Reason Comments LAB Encounter Details Date Type Department Care Team Description 06/18/[address] [facility] Women's LaureanoEun MD LAB Healthcare- [place] [address] [address] [place] [phone] [place] [phone] Allergies No Known Allergiesdocumented as of [...] & Laureano, Eun Chandler MD Visit Gynecology [address] [place] [address] DR. Alarcon [place], [place] [address] Health Maintenance Due Date Last Done Comments [...] Dates Phone Address Type LIDA HILTON II [id number] 2018-Present HMO/PPO/POS documented as of this encounter
--- OUTSIDE RECORDS SUMMARY | 2019-07-06 17:17 | XMS REPORT | Summary of Care ---
:1993 Author Organization [facility] Address [address] [place] [address] Care Team Providers Name Role Phone Sandrita Live Primary Care Provider Reason for Visit Reason Comments LAB Encounter Details Date Type Department Care Team Description 06/18/2019 Case Management [facility] Women's LaureanoEun MD LAB Healthcare- [place] [address] [address] [place] [phone] [place] [phone] Allergies No Known Allergiesdocumented as of [...] & Laureano, Eun Chandler MD Visit Gynecology [address] [place] [address] [address] [place], [place] [address] Health Maintenance Due Date Last Done Comments [...] Dates Phone Address Type LIDA HILTON II [id number] 2018-Present HMO/PPO/POS documented as of this encounter
--- OUTSIDE RECORDS SUMMARY | 2019-07-06 17:18 | XMS REPORT | Summary of Care ---
:1995 Author Organization [facility] Address [address] [place] [address] Care Team Providers Name Role Phone Sandrita Live Primary Care Provider Reason for Referral (Routine) Status Reason Specialty Diagnoses / Referred By Referred To Procedures Contact Contact New Request Pediatric Diagnoses High-risk in second trimester Family history of congenital heart defect Eun Laureano, Genetics Procedures CONSULT GENETICS [address] [place] [address] [address] [place] [address] (Routine) Status Reason Specialty Diagnoses / Referred By Referred To Procedures Contact Contact New Request Maternal Diagnoses High-risk in second trimester Family history of congenital heart defect Eun Laureano, Medicine Procedures CONSULT MATERNAL MEDICINE ULTRASOUND Preferred Location: Javi RO [address] [place] [address] [address] [place] [address] Reason for Visit Reason Comments ROUTINE VISIT Encounter Details Date Type Department Care Team Description 06/28/2019 Routine [facility] Women's Eun Laureano MD High-risk in second trimester (Primary Dx); Visit Healthcare- [address] [place] [address] 13 weeks gestation of ; Javi DAVIS Family history of congenital heart defect [address] [place] [address], [facility] [address] [place] [address] [phone] Allergies No Known Allergiesdocumented as of this encounter (statuses as of 06/30/2019) Medications Medication Sig Dispensed Refills Start Date [...] as of this encounter (statuses as of 06/30/2019) Active Problems Problem Noted Date Sickle cell trait 05/31/2019 Pre-existing essential hypertension during , antepartum 05/31/2019 Hypothyroidism, unspecified type 05/31/2019 Morbid obesity with body mass index of 40.0-49.9 05/10/2019 Estimated Date of Delivery Comments Yes 01/02/2020 Based on Ultrasound documented as of this encounter (statuses as of 06/30/2019) Immunizations Name Administration Dates Next Due Influenza [...] Sign Reading Time Taken Comments Blood Pressure 126/87 06/28/2019 4:03 PM CDT Pulse 81 06/28/2019 4:03 PM CDT Temperature 36.9 C (98.4 F) 06/28/2019 4:03 PM CDT Respiratory Rate 20 06/28/2019 4:03 PM CDT Oxygen Saturation - - Inhaled Oxygen Concentration - - Weight 110.7 kg (244 lb) 06/28/2019 4:03 PM CDT Height 160 cm (5' 3") 06/28/2019 4:03 PM CDT Body Mass Index 43.22 06/28/2019 4:03 PM CDT documented in this encounter Progress Notes Eun Laureano MD - 06/28/2019 3:30 PM CDT Chief complaint: Chief Complaint Patient presents [...] file Gets together: Not on file Attends sikhism service: Not on file Active member of [...] s): pnv 19/iron ps,heme/folic/dha, ranitidine hcl, levothyroxine, labetalol, and ergocalciferol (vitamin d2). Review of Systems Constitutional: Negative for chills, [...] headaches. Hematological: Does not bruise/bleed easily. BP 126/87 (BP Location: Left arm, Patient Position: Sitting) | Pulse 81 | Temp 36.9 C (98.4 F)(Oral) | Resp 20 | Ht 5' 3" (1.6 m) | Wt 244 lb ( 110.7 kg) | LMP 03/10/2019 (LMP Unknown) | BMI43.22 kg/m Pregravid BMI: 41.6 Physical Exam Vitals [...] See OB Summary Return to clinic in 2 weeks. Reviewed patient instructions and provided printed copy. Activity restrictions: As tolerated at 13w3d This visit did not involve counseling and coordination that comprised more than 50% of the visit time. Eun Laureano MD 06/30/2019 5:47 AM documented in this encounter Plan of Treatment Date Type Specialty Care Team Description 07/27/2019 Routine Obstetrics & Eun Laureano MD Visit Gynecology [address] [place] [address] [place] [address] [phone] Name Type Priority Associated Diagnoses Order Schedule THYROID STIMULATING LAB Routine High-risk in Ordered: 06/28/2019 HORMONE second trimester COMP. METABOLIC PANEL LAB Routine High-risk in Expected: 2018, (62649) second trimester Expires: 07/28/2019 CREATININE U 24 HR LAB Routine High-risk in Expected: 06/28/2019, second trimester Expires: 09/27/2019 Health Maintenance Due Date Last Done Comments [...] filedocumented in this encounter Visit Diagnoses Diagnosis High-risk in second trimester - Primary 13 weeks gestation of state, incidental Family history of congenital heart defect Family history of congenital anomalies documented in this encounter documented as of this encounter
--- OUTSIDE RECORDS SUMMARY | 2019-07-06 17:18 | XMS REPORT | Summary of Care ---
:1995 Author Organization [facility] Address [address] [place] [address] Care Team Providers Name Role Phone Sandrita Live Primary Care Provider Reason for Visit Reason Comments Assessment Encounter Details Date Type Department Care Team Description 07/06/2019 Telephone [facility] Women's LaureanoEun MD Assessment Healthcare- [address] [facility], [address] [place] [address] [place] [address] Allergies No Known Allergiesdocumented as of this encounter (statuses as of 07/06/2019) Medications Medication Sig Dispensed Refills Start Date [...] as of this encounter (statuses as of 07/06/2019) Active Problems Problem Noted Date Sickle cell trait 05/31/2019 Pre-existing essential hypertension during , antepartum 05/31/2019 Hypothyroidism, unspecified type 05/31/2019 Morbid obesity with body mass index of 40.0-49.9 05/10/2019 Estimated Date of Delivery Comments Yes 01/02/2020 Based on Ultrasound documented as of this encounter (statuses as of 07/06/2019) Immunizations Name Administration Dates Next Due Influenza [...] Care Team Description 07/27/2019 Routine Obstetrics & Laureano, Eun Chandler MD Visit Gynecology [address] [place] [address] [address] Al[address]con [place], [place] [id number] Health Maintenance Due Date Last Done Comments [...] Dates Phone Address Type LIDA HILTON II [id number] 2018-Present HMO/PPO/POS documented as of this encounter
--- OUTSIDE RECORDS SUMMARY | 2019-07-06 17:18 | XMS REPORT | Summary of Care ---
:1995 Author Organization [address] [address] Care Team Providers Name Role Phone Sandrita Live Primary Care Provider Reason for Visit Reason Comments pelvic pressure, vaginal pressure Encounter Details Date Type Department Care Team Description 07/06/2019 Nurse Triage [facility] Pam Grant RN (pelvic [address] [place] [address] pressure, vaginal [address] pressure) [place] [phone] Allergies No Known Allergiesdocumented as of this [...] & Laureano, Eun Chandler MD Visit Gynecology [address] [place] [address] [place] [address] [phone] Health Maintenance Due Date Last Done Comments [...] Dates Phone Address Type LIDA HILTON II [id number] 2018-Present HMO/PPO/POS documented as of this encounter
--- OUTSIDE RECORDS SUMMARY | 2019-07-06 17:18 | XMS REPORT | Summary of Care ---
:1995 Author Organization [facility] Address [address] [place] [address] Care Team Providers Name Role Phone Sandrita Live Primary Care Provider Encounter Details Date Type Department Care Team Description 06/30/2019 Orders Only [facility] Eun Laureano MD [address] [place] [address] [place] [address] [address] [phone] Allergies No Known Allergiesdocumented as of this encounter (statuses as of 07/01/2019) Medications Medication Sig Dispensed Refills Start Date [...] as of this encounter (statuses as of 07/01/2019) Active Problems Problem Noted Date Sickle cell trait 05/31/2019 Pre-existing essential hypertension during , antepartum 05/31/2019 Hypothyroidism, unspecified type 05/31/2019 Morbid obesity with body mass index of 40.0-49.9 05/10/2019 Estimated Date of Delivery Comments Yes 01/02/2020 Based on Ultrasound documented as of this encounter (statuses as of 07/01/2019) Immunizations Name Administration Dates Next Due Influenza [...] & Laureano, Eun Chandler MD Visit Gynecology [address] [place] [address] [address]. Alarcon [place], [place] [phone] Name Type Priority Associated Diagnoses Date/Time CREATININE, 24 HOUR LAB Routine 06/30/2019 3:56 PM CDT URINE-Q TSH, 3RD LAB Routine 06/30/2019 3:56 PM CDT GENERATION$W/REFLEX TO FT4-Q Health Maintenance Due Date Last Done Comments [...] encounter Procedures Procedure Name Priority Date/Time Associated Comments Diagnosis COMPREHENSIVE Routine 06/30/2019 3:56 Results for this METABOLIC$PANEL PM CDT procedure are in W/EGFR-Q the results section. documented in this encounter Results COMPREHENSIVE METABOLIC$PANEL W/EGFR-Q (06/30/2019 3:56 PM CDT) GLUCOSE-Q 74 65 - 99 mg/dL [facility] ([facility]) Comment: Fasting reference interval UREA NITROGEN 7 7 - 25 mg/dL [facility] ([facility]) (BUN)-Q CREATININE-Q 0.58 0.50 - 1.10 [facility] ([facility]) mg/dL eGFR NON-AFR. 127 > OR=60 [facility] ([facility]) HONDURAN-Q mL/min/1.73m2 eGFR 147 > OR=60 [facility] ([facility]) HONDURAN-Q mL/min/1.73m2 BUN/CREATININE NOT APPLICABLE 6 - 22 (calc) [facility] ([facility]) RATIO-Q SODIUM-Q 137 135 - 146 [facility] ([facility]) mmol/L POTASSIUM-Q 4.0 3.5 - 5.3 [facility] ([facility]) mmol/L CHLORIDE-Q 104 98 - 110 [facility] ([facility]) mmol/L CARBON DIOXIDE-Q 24 20 - 32 mmol/L [facility] ([facility]) CALCIUM-Q 9.5 8.6 - 10.2 [facility] ([facility]) mg/dL PROTEIN, TOTAL-Q 6.7 6.1 - 8.1 g/dL [facility] ([facility]) ALBUMIN-Q 3.9 3.6 - 5.1 g/dL [facility] ([facility]) GLOBULIN-Q 2.8 1.9 - 3.7 g/dL [facility] ([facility]) (calc) ALBUMIN/GLOBULIN 1.4 1.0 - 2.5 [facility] ([facility]) RATIO-Q (calc) BILIRUBIN, TOTAL-Q 0.3 0.2 - 1.2 [facility] ([facility]) mg/dL ALKALINE 73 33 - 115 U/L [facility] ([facility]) PHOSPHATASE-Q AST-Q 14 10 - 30 U/L [facility] ([facility]) ALT-Q 13 6 - 29 U/L [facility] ([facility]) Specimen Narrative Performed At PERFORMED BY [employer] [place]; [address] [facility], [place] [facility] ([facility]) [phone]; MELY RANDALL MD Performing Organization Address City/State/Zipcode Phone Number [facility] ([place]) documented in this encounter Insurance Payer Benefit Plan / Group Subscriber ID Effective Dates Phone Address Type LIDA HILTON II [id number] 2018-Present HMO/PPO/POS documented as of this encounter
--- NOTE | 2019-07-06 19:01 | ER ---
Nurse's Notes [facility] Name: Olga Harris Age: 24 yrs Sex: Female : 1995 Arrival Date: 07/06/2019 Time: 17:16 Bed Ultrasound Private MD: Sandrita Live Diagnosis: 14 weeks gestation of Presentation: 07/06 17:27 Presenting complaint: Vaginal pressure and discomfort after lifting supplies at work hb yesterday. Denies bleeding. Pt is approx 14 weeks , DHEERAJ 01/02/2020. Transition of care: patient was not received from another setting of care. Onset of symptoms was July 05, 2019. Risk Assessment: Do you want to hurt yourself or someone else? Patient reports no desire to harm self or others. Initial Sepsis Screen: Does the patient meet any 2 criteria? No. Patient's initial sepsis screen is negative. Does the patient have a suspected source of infection? No. Patient's initial sepsis screen is negative. Care prior to arrival: None. 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 - Social history:: Smoking status: Patient/guardian denies using tobacco. - Ebola Screening: : No symptoms or risks identified at this time. Screenin:01 Abuse screen: Denies threats or abuse. Nutritional screening: No deficits noted. tw2 Tuberculosis screening: No symptoms or risk factors identified. Fall Risk None identified. Assessment: 18:01 General: Appears in no apparent distress. well groomed, Behavior is calm, cooperative, tw2 appropriate for age. Pain: Complains of pain in pelvis. Neuro: Level of Consciousness is awake, alert, obeys commands, Oriented to person, place, time, situation. Cardiovascular: Heart tones S1 S2 Patient's skin is warm and dry. Respiratory: Airway is patent Respiratory effort is even, unlabored, Respiratory pattern is regular, symmetrical, Breath sounds are clear bilaterally. GI: Abdomen is round non-distended, Bowel sounds present X 4 quads. : Reports "vaginal pressure". EENT: No signs and/or symptoms were reported regarding the EENT system. Derm: No signs and/or symptoms reported regarding the dermatologic system. Musculoskeletal: Range of motion: intact in all extremities. 19:08 Reassessment: Patient appears in no apparent distress at this time. No changes from tw2 previously documented assessment. Patient and/or family updated on plan of care and expected duration. Pain level reassessed. Patient is alert, oriented x 3, equal unlabored respirations, skin warm/dry/pink. Vital Signs: 17:31 BP 147 / 93; Pulse 76; Resp 16; Temp 97.8; Pulse Ox 100% on R/A; Weight 111.13 kg; hb Height 5 ft. 3 in. (160.02 cm); Pain 1/10; 18:06 BP 122 / 89; Pulse 66; Resp 17; Pulse Ox 99% on R/A; tw2 17:31 Body Mass Index 43.40 (111.13 kg, 160.02 cm) hb ED Course: 17:16 Patient arrived in ED. mr 17:17 Sandrita Live MD is Private Physician. mr 17:27 Malathi English FNP-C is PSYCHIATRIC. kb 17:27 Greg Steinberg MD is Attending Physician. kb 17:30 Triage completed. hb 17:31 Arm band placed on right wrist. hb 17:32 Bed in low position. Call light in reach. Adult w/ patient. tw2 17:35 Liss Sears, RN is Primary Nurse. tw2 18:55 OB Limited In Process Unspecified. EDMS 19:07 No provider procedures requiring assistance completed. Patient did not have IV access tw2 during this emergency room visit. Administered Medications: No medications were administered Outcome: 18:59 Discharge ordered by . kb 19:07 Discharged to home ambulatory, with significant other. tw2 19:07 Condition: stable 19:07 Discharge instructions given to patient, significant other, Instructed on discharge instructions, follow up and referral plans. Demonstrated understanding of instructions, follow-up care. 19:08 Patient left the ED. tw2 Signatures: Dispatcher [employer] Malathi Wright, CHRISTIANA PALACIOS-Chacha Gonzalez Heather, RN RN Liss Shea RN RN tw2
--- NOTE | 2019-07-06 19:02 | EDPHYS ---
Physician Documentation [facility] Name: Olga Harris Age: 24 yrs Sex: Female : 1995 Arrival Date: 07/06/2019 Time: 17:16 Bed Ultrasound Private MD: Sandrita Live ED Physician Greg Steinberg HPI: 07/06 17:50 This 24 yrs old Female presents to ER via Ambulatory with complaints of 14 wks kb ,vaginal pressure. 17:50 The patient presents to the emergency department with vaginal pressure. The estimated kb gestational age is 14 weeks. course: care: private OB physician, Dr. Laureano. Previous pregnancies: the patient has never been . Associated signs and symptoms: Pertinent positives: vaginal pressure. The patient has not experienced similar symptoms in the past. The patient has not recently seen a physician. Pt reports she was lifting reagents yesterday and started feeling an odd sensation in lower abd. States she took a break, but still had some vaginal pressure. States "Today I had the same feeling like you would if you had a tampon in when I sat down. Then started feeling a sensation like I was passing a clot through my cervix." I called my OB and was told to come in to get checked out.. 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 - Social history:: Smoking status: Patient/guardian denies using tobacco. - Ebola Screening: : No symptoms or risks identified at this time. ROS: 17:49 Constitutional: Negative for fever, chills, and weight loss, ENT: Negative for injury, kb pain, and discharge, Neck: Negative for injury, pain, and swelling, Cardiovascular: Negative for chest pain, palpitations, and edema, Respiratory: Negative for shortness of breath, cough, wheezing, and pleuritic chest pain, Abdomen/GI: Negative for abdominal pain, nausea, vomiting, diarrhea, and constipation, MS/Extremity: Negative for injury and deformity, Skin: Negative for injury, rash, and discoloration, Neuro: Negative for headache, weakness, numbness, tingling, and seizure. 17:49 : Positive for vaginal pressure. Exam: 17:50 Constitutional: This is a well developed, well nourished patient who is awake, alert, kb and in no acute distress. Head/Face: Normocephalic, atraumatic. Chest/axilla: Normal chest wall appearance and motion. Nontender with no deformity. No lesions are appreciated. Cardiovascular: Regular rate and rhythm with a normal S1 and S2. No gallops, murmurs, or rubs. Normal PMI, no JVD. No pulse deficits. Respiratory: Lungs have equal breath sounds bilaterally, clear to auscultation and percussion. No rales, rhonchi or wheezes noted. No increased work of breathing, no retractions or nasal flaring. Abdomen/GI: Soft, non-tender, with normal bowel sounds. No distension or tympany. No guarding or rebound. No evidence of tenderness throughout. Back: No spinal tenderness. No costovertebral tenderness. Full range of motion. Skin: Warm, dry with normal turgor. Normal color with no rashes, no lesions, and no evidence of cellulitis. MS/ Extremity: Pulses equal, no cyanosis. Neurovascular intact. Full, normal range of motion. Neuro: Awake and alert, GCS 15, oriented to person, place, time, and situation. Cranial nerves II-XII grossly intact. Motor strength 5/5 in all extremities. Sensory grossly intact. Cerebellar exam normal. Normal gait. Vital Signs: 17:31 BP 147 / 93; Pulse 76; Resp 16; Temp 97.8; Pulse Ox 100% on R/A; Weight 111.13 kg; hb Height 5 ft. 3 in. (160.02 cm); Pain 1/10; 18:06 BP 122 / 89; Pulse 66; Resp 17; Pulse Ox 99% on R/A; tw2 17:31 Body Mass Index 43.40 (111.13 kg, 160.02 cm) hb MDM: 17:32 Patient medically screened. kb 17:49 Data reviewed: vital signs, nurses notes. Data interpreted: Pulse oximetry: on room air kb is 100 %. Interpretation: normal. 18:59 Counseling: I had a detailed discussion with the patient and/or guardian regarding: the kb historical points, exam findings, and any diagnostic results supporting the discharge/admit diagnosis, lab results, radiology results, the need for outpatient follow up, an OB/Gyne specialist, to return to the emergency department if symptoms worsen or persist or if there are any questions or concerns that arise at home. 07/06 17:56 Order name: Urine Dipstick--Ancillary (enter results) bd 07/06 18:07 Order name: Test, Urine; Complete Time: 18:24 EDMS 07/06 17:32 Order name: Urine Dipstick-Ancillary (obtain specimen); Complete Time: 17:48 kb 07/06 18:55 Order name: OB Limited [facility] Administered Medications: No medications were administered Disposition: 07/07 06:37 Co-signature as Attending Physician, Greg Steinberg MD I agree with the assessment and [facility] plan of care. Disposition: 07/06/19 18:59 Discharged to Home. Impression: 14 weeks gestation of . - Condition is Stable. - Discharge Instructions: Second Trimester of , [id number]. - Medication Reconciliation Form, Thank You Letter, Antibiotic Education, Prescription Opioid Use, Work release form, Family Work Release form. - Follow up: Emergency Department; When: As needed; Reason: Worsening of condition. Follow up: Private Physician; When: 2 - 3 days; Reason: Recheck today's complaints, Continuance of care, Re-evaluation by your physician. Signatures: Dispatcher [employer] [facility] Malathi English, PHILIP-C DIGITAL ARCHIVIST-Greg Kelly MD MD cha Baxter, Heather, RN RN Liss Shea RN RN tw2 Corrections: (The following items were deleted from the chart) 07/06 18:55 18:25 Transvaginal Ob+US.RAD.BRZ ordered. [facility] 19:08 18:59 07/06/2019 18:59 Discharged to Home. Impression: 14 weeks gestation of . tw2 Condition is Stable. Forms are Work release form, Family Work Release, Medication Reconciliation Form, Thank You Letter, Antibiotic Education, Prescription Opioid Use. Follow up: Emergency Department; When: As needed; Reason: Worsening of condition. Follow up: Private Physician; When: 2 - 3 days; Reason: Recheck today's complaints, Continuance of care, Re-evaluation by your physician. kb
[2019-07-06 19:15] VITALS: TEMP 97.8
--- NOTE | 2019-07-06 19:15 | RAD REPORT ---
EXAM DESCRIPTION: US - OB Limited - 07/06/2019 6:52 pm CLINICAL HISTORY: with pelvic pain COMPARISON: None. FINDINGS: The uterus measures 12 x 18 x 11 centimeters. Single live intrauterine in breec h presentation. Cardiac activity 151 beats per minute. The placenta is anterior. No subchorionic/retroplacental bleed. Normal amniotic fluid BPD 2.5 centimeters 14 weeks 1 day HC 9.5 centimeters 14 weeks 2 days AC 7.9 centimeters 14 weeks 2 days FL 1.2 centimeters 13 weeks 4 days Estimated weight 86 grams The right kidney and left adnexum unremarkable No significant free fluid is seen. IMPRESSION: Single live intrauterine with an estimated gestational age 14 weeks 1 day DHEERAJ 01/03/2020 Breech presentation If a survey is desired it should be performed in approximately 4 weeks
[2019-07-06 19:16] VITALS: BP 122/89; O2SAT 99
[2019-07-06 20:39] LABS: Urine Blood NEGATIVE (NEG); Urine Glucose NEGATIVE (NEG); Urine Protein NEGATIVE (NEG); Urine pH 6.5 (5.0-7.0)
== END 2019-07-06 19:08 | disposition home or self-care (01) ==
LOC: ER 17:12
DX: O26.892 Other specified pregnancy related conditions, second trimester (principal)
CPT/HCPCS: 76815; 81003; 81025; 99283